=== PATIENT | female | born 1990 | race Caucasian/White ===

== ENCOUNTER 2017-07-07 12:41 | Emergency (ER) | payer MEDICAID ==
[~2017-07-07] VITALS: Ht 160 cm; Wt 66.2 kg
[2017-07-07 11:38] VITALS: BP 108/64
[~2017-07-07 12:41] MED LIST: ALBU0.0912 IH; FERR-252 PO; PREN-546 PO
[2017-07-07 12:49] VITALS: BP 108/69
--- NOTE | 2017-07-07 12:52 | NUR ---
Patient ambulated to bed 01.
--- NOTE | 2017-07-07 12:54 | NUR ---
PT SENT TO ER FROM L&D FOR EVALUATION OF LEFT SIDED LBP X2 DAYS. PT 28 WEEKS , LMP 12/14/16, EDC 09/20/17. HX ASTHMA.
--- NOTE | 2017-07-07 13:08 | NUR ---
ER MD DR. JUAREZ EVALUATING PT AT BEDSIDE.
[2017-07-07] MEDS ORDERED: ACETAMINOPHEN EXTRA STRENGTH 500 MG TAB ONE (13:29)
[2017-07-07 13:40] LABS: APPEARANCE,URINE HAZY (CLEAR); BILIRUBIN,URINE NEGATIVE (NEGATIVE); BLOOD, URINE TRACE-I (NEGATIVE); COLOR,URINE YELLOW (YELLOW); LEUKOCYTE ESTERASE ,URINE 2+ (NEGATIVE); NITRITE, URINE POSITIVE (NEGATIVE); UGLUCOSE NEGATIVE (NEGATIVE)
[2017-07-07 13:53] LABS: RBC,URINE 0-5 (RARE) /HPF (0-5)
[2017-07-07 14:01] VITALS: BP 100/65
== END 2017-07-07 14:01 | disposition home or self-care (01) ==
LOC: MED 12:41 → EDSTATUS 12:41 → MED 14:01
DX: N39.0 Urinary tract infection, site not specified (principal)
CPT/HCPCS: 81001; 81025; 87086; 87186; 99284

== ENCOUNTER 2018-03-07 21:40 | Emergency (ER) | payer MEDICAID ==
--- NOTE | 2018-03-07 21:50 | NUR ---
PATIENT LEFT WITHOUT BEING SEEN BY DR. WINTERS. NO FURTHER CARE PROVIDED FOR PATIENT.
--- NOTE | 2018-03-07 22:10 | NUR ---
PATIENT LEFT WITHOUT BEING SEEN BY DR. WINTERS. NO FURTHER CARE PROVIDED FOR PATIENT.
== END 2018-03-07 21:50 | disposition left against medical advice (07) ==
LOC: MED 21:40
DX: Z53.21 Procedure and treatment not carried out due to patient leaving prior to being seen by health care provider (principal)